=== PATIENT | male | born 2005 | race Caucasian/White ===

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

== ENCOUNTER 2023-03-21 11:29 | Emergency (ER) | payer OTHER, SELFPAY ==
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
[2023-03-21 11:33] VITALS: BP 121/71; PULSE 71; RESP 19; TEMP 36.6; O2SAT 98; BMI 22.3
[2023-03-21] MEDS: Bacitracin Oint 0.9 GM PACKET 1 APPL TOPICAL (12:02)
== END 2023-03-21 13:32 | disposition home or self-care (01) ==
PROVIDERS: Emergency Provider Student in an Organized Health Care Education/Training Program; PCP Specialist
DX: S50.12XA Contusion of left forearm, initial encounter (principal); T23.272A Burn of second degree of left wrist, initial encounter; T31.0 Burns involving less than 10% of body surface; M79.602 Pain in left arm; V43.62XA Car passenger injured in collision with other type car in traffic accident, initial encounter; Y92.410 Unspecified street and highway as the place of occurrence of the external cause; Y93.9 Activity, unspecified; Y99.9 Unspecified external cause status
CPT/HCPCS: 16025; 73090; 99282; 99283